=== PATIENT | female | born 1955 | race Caucasian/White ===

== ENCOUNTER → 2016-12-11 | Outpatient (CLI) | payer BC ==
[2016-12-11 11:58] LABS: BASOPHILS # (AUTO) 0.08 10*3/UL; BASOPHILS % (AUTO) 1.5 % (0-1); EOSINOPHILS # (AUTO) 0.11 10*3/UL; HEMATOCRIT 39.6 % (37.0-47.0); HEMOGLOBIN 12.6 g/dL (12.0-16.0); LYMPHOCYTES # (AUTO) 1.41 10*3/uL; MEAN CORPUSCULAR HEMOGLOBIN 28.3 PG (27-31); MEAN CORPUSCULAR HGB CONC 31.8 g/dL (33-37); MEAN CORPUSCULAR VOLUME 88.8 FL (81-99); MEAN PLATELET VOLUME 10.6 FL (7.4-12.2); MONOCYTES # (AUTO) 0.48 10*3/UL (0.3-0.8); MONOCYTES % (AUTO) 8.8 % (5-15); NEUTROPHILS # (AUTO) 3.34 10*3/UL; NEUTROPHILS % (AUTO) 61.5 % (50-80); RED BLOOD COUNT 4.46 10^6/uL (4.20-5.40)
[2016-12-11 12:01] LABS: PLATELET MORPHOLOGY COMMENT NORMAL MORPHOLOGY (NORM); RBC MORPHOLOGY COMMENT NORMAL MORPHOLOGY (NORM); WBC MORPHOLOGY COMMENT NORMAL MORPHOLOGY (NORM)
[2016-12-11 12:25] LABS: CHOL/HDL RATIO 3.1 RATIO (0-4.0); SERUM ALBUMIN 4.2 g/dL (3.5-4.8)
== END ==
LOC: LAB 10:48
PROVIDERS: ATTEND Dermatology
DX: L93.1 Subacute cutaneous lupus erythematosus (principal)
CPT/HCPCS: 36415; 80061; 80076; 85025

== ENCOUNTER → 2016-12-18 | Outpatient (CLI) | payer BC ==
--- NOTE | 2016-12-18 13:37 | DI ---
XR FOOT COMPLETE MIN 3VW,12/18/2016 12:22 PM: Clinical History: Right foot pain Previous Exam: None at this facility. Findings: 3 views of the right foot are obtained, and demonstrate anatomic alignment. There is an intra-articul ar fracture involving the right fifth proximal phalanx which is only seen on one view. There is mild prominent soft tissue swelling in this area. There are other mild degenerative changes noted at the insertion of the tendon and the plantar fascia . Impression: Minimally displaced fracture of the right fifth proximal phalanx.
== END ==
LOC: RAD 12:23
PROVIDERS: ATTEND Physician Assistant
DX: M79.671 Pain in right foot (principal); S92.511D Displaced fracture of proximal phalanx of right lesser toe(s), subsequent encounter for fracture with routine healing; W22.8XXA Striking against or struck by other objects, initial encounter
CPT/HCPCS: 73630